=== PATIENT | female | born 1955 | race Caucasian/White ===

== ENCOUNTER 2017-10-17 09:37 | Emergency (ER) | payer BC, OTHER ==
[~2017-10-17] VITALS: Ht 172.7 cm; Wt 87.0 kg
[~2017-10-17 09:37] MED LIST: METF500T PO; SYN0.1T PO
[2017-10-17] MEDS ORDERED: ipratropium/albuterol 3ml nebule NEB ONE (11:00)
[2017-10-17] MEDS ORDERED: ALBU8.5H8 IH (11:04)
[2017-10-17] MEDS ORDERED: BENZ-16 PO (11:04)
[2017-10-17 11:40] VITALS: BP 132/88
== END 2017-10-17 11:42 | disposition home or self-care (01) ==
LOC: ER 09:37
DX: J20.9 Acute bronchitis, unspecified (principal); Z88.2 Allergy status to sulfonamides; Z79.84 Long term (current) use of oral hypoglycemic drugs; Z79.899 Other long term (current) drug therapy
CPT/HCPCS: 94760; 99283